=== PATIENT | female | born 1940 | race Caucasian/White ===

== ENCOUNTER 2025-03-13 11:59 | Emergency (ER) | payer OTHER ==
[2025-03-13 13:27] LABS: Absolute Lymphocytes (CBC) 0.7 K/uL (0.7-4.9); Hematocrit 34.3 % (36.0-45.0); Hemoglobin 10.8 g/dL (12.0-15.0); MCH 26.8 pg (27.0-35.0); MCHC 31.6 g/dL (32.0-36.0); MCV 85.0 fL (80-100); MPV 8.7 fL (7.6-11.3); Nucleated RBC Absolute Count 0.0 (0-0); Nucleated Red Blood Cells % 0.0 % (0-0); RBC Red Blood Cell Count 4.04 M/uL (3.86-4.86); White Blood Count 8.30 thou/uL (4.3-10.9)
[2025-03-13 13:45] LABS: AST/SGOT 35 U/L (15-37); Albumin 2.7 g/dL (3.4-5.0); Albumin/Globulin Ratio 0.8 (1.1-1.8); Alkaline Phosphatase 87 U/L (45-117); Anion Gap 8.8 mEq/L (5.0-15.0); BUN Blood Urea Nitrogen 10 mg/dL (7-18); Globulin 3.3 g/dL (2.3-3.5); Glucose Level 86 mg/dL (74-106); Lipase 12 U/L (13-75); Potassium 4.8 mEq/L (3.5-5.1)
[2025-03-13 13:47] LABS: ALT/SGPT < 14 U/L (13-56)
--- NOTE | 2025-03-13 14:46 | RAD REPORT ---
EXAMINATION: CT Abdomen Pelvis W Contrast CLINICAL INDICATION: Female, 85 years old. ABD PAIN TECHNIQUE: CT abdomen and pelvis was performed, after the administration of IV contrast, as per depar tment protocol. Axial, sagittal and coronal reconstructions were obtained. One or more of the following dose reduction techniques were used: Automated exposure control, adjustment of the mA and k V according to patient size, and iterative reconstruction. Unless otherwise specified, incidental findings do not require dedicated imaging follow-up. COMPARISON: No prior exam. FINDINGS: LOWER CHEST: Trace layering right pleural effusion. The visualized lung bases are clear apart from a 6 mm peripheral left lower lobe calcified granuloma. LIVER: Normal in size and contour. No focal lesion. BILIARY SYSTEM: Status post cholecystectomy. Prominent caliber of the common bile duct, up to 12 mm, with no discrete mass at the ampulla within limits of CT evaluation. This probably relates to reservoir effect. SPLEEN: Normal size. No focal lesion. PANCREAS: No mass, ductal dilation, or kristen-pancreatic fluid. ADRENALS: Normal; no mass. KIDNEYS: Right nephrostomy tube in satisfactory position. No hydroureteronephrosis. Numerous cortical renal cysts largest at the right lower pole measuring 3.8 cm. No hydronephrosis. URINARY BLADDER: Unremarkable. GASTROINTESTINAL TRACT: Sequelae of large bowel partial resection. Mild free pelvic and perihepatic a scites. No evidence of free air, significant intra-abdominal free fluid, bowel obstruction or abscess. APPENDIX: Normal appendix. LYMPH NODES: No lymphadenopathy. MUSCULOSKELETAL: Bilateral hip arthroplasty hardware results in extensive streak artifact which limit s evaluation. No acute or suspicious osseous abnormality. ADDITIONAL FINDINGS: Heterogeneously enhancing posterior pelvic mass centered right of midline, measu ring 11.7 x 9.2 x 10.5 cm, which could be of uterine or right adnexal origin. Another heterogeneously enhancing left anterior pelvic mass measuring 8.7 x 7.2 x 3.1 cm, likely left adnexal origin. Up to advanced atherosclerotic calcific plaque of the abdominal aorta. IMPRESSION: There are 2 large heterogeneously enhancing masses in the pelvis, the most sizable 11.7 cm mass could be of uterine or right adnexal origin, while the left pelvic mass is probably of left adnexal origin. Given size and morphology, malignant etiologies should be considered, including but not limit ed to ovarian cystadenomas or cystadenocarcinomas. Gynecologic referral recommended. Mild free ascites. Right nephrostomy tube in satisfactory position. No hydroureteronephrosis or evidence of calculi. Other incidental findings as above.
[2025-03-13 15:44] LABS: Urine Microscopic Reflex YN NO UMIC
--- NOTE | 2025-03-13 16:08 | EDPHYS ---
Physician Documentation [facility] Name: Zoë Jolly Age: 85 yrs Sex: Female : 1940 Arrival Date: 03/13/2025 Time: 11:59 Bed 7 Private MD: ED Physician Jaquan Booth HPI: 03/13 14:59 This 85 yrs old Female presents to ER via Ambulatory with complaints of nephrostomy ms3 tube issue, Abdominal Pain. 14:59 85-year-old female with past medical history of colon cancer, neuropathy, cardiac ms3 issues presents to the emergency department for abdominal pain that she rates 10/10 and has been ongoing for 2 days. Patient denies fevers, chills, diarrhea. She denies any alleviating or inciting factors.. Historical: - Allergies: 12:23 PENICILLINS; dd2 - PMHx: 12:23 COLON CA; NEUROPATHY; CARDIAC ISSUES; dd2 - PSHx: 12:23 PACEMAKER; RT NEPHROSTOMY TUBE; KNEE REPLACEMENT; HIP REPLACEMENT; dd2 - Immunization history:: Adult Immunizations unknown. - Infectious Disease History:: Denies. - Social history:: Smoking status: Patient denies any tobacco usage or history of. ROS: 14:59 Constitutional: Negative for fever, and chills. Cardiovascular: Negative for chest ms3 pain, and palpitations. Respiratory: Negative for shortness of breath, cough, wheezing, and pleuritic chest pain, 14:59 MS/Extremity: Negative for injury and deformity, Skin: Negative for injury, rash, and discoloration, 14:59 Abdomen/GI: Positive for abdominal pain, Exam: 14:59 Constitutional: This is a well developed, well nourished patient who is awake, alert, ms3 and in no acute distress. Cardiovascular: Regular rate and rhythm with a normal S1 and S2. No gallops, murmurs, or rubs. Normal PMI, no JVD. No pulse deficits. Respiratory: Lungs have equal breath sounds bilaterally, clear to auscultation and percussion. No rales, rhonchi or wheezes noted. No increased work of breathing, no retractions or nasal flaring. 14:59 MS/ Extremity: Pulses equal, no cyanosis. Neurovascular intact. Full, normal range of motion. 14:59 Abdomen/GI: Inspection: abdomen appears normal, Bowel sounds: normal, Palpation: moderate abdominal tenderness, in the right lower quadrant, Vital Signs: 12:20 BP 107 / 65; Pulse 57; Resp 17; Temp 98.6; Pulse Ox 100% ; Weight 56.7 kg; Pain 9/10; dd2 13:23 BP 107 / 65; Pulse 62; Resp 18; Temp 98.1; Pulse Ox 100% on R/A; Pain 10/10; zm 14:27 BP 115 / 62; Pulse 65; Resp 18; Pulse Ox 100% on R/A; ap3 16:19 BP 117 / 55; Pulse 65; Resp 18; Temp 98.3; Pulse Ox 100% on R/A; Pain 3/10; zm 12:20 Pain Scale: Adult dd2 13:23 Pain Scale: Adult zm 16:19 Pain Scale: Adult zm [place] Coma Score: 13:23 Eye Response: spontaneous(4). Motor Response: obeys commands(6). Verbal Response: zm oriented(5). Total: 15. 16:19 Eye Response: spontaneous(4). Motor Response: obeys commands(6). Verbal Response: zm oriented(5). Total: 15. MDM: 13:10 Medical Screening Exam initiated ms3 14:59 Differential diagnosis: appendicitis, bowel obstruction, non-specific abd pain. ms3 16:08 Data reviewed: vital signs, nurses notes, lab test result(s), radiologic studies, and ms3 as a result, I will discharge patient. I considered the following discharge prescriptions or medication management in the emergency department Medications were administered in the Emergency Department. See MAR. Independent interpretation of the following test(s) in the Emergency Department CT Scan: My interpretation is CT abd/pelvis images reviewed by me reveal pelvic masses. Counseling: I had a detailed discussion with the patient and/or guardian regarding the historical points, exam findings, and any diagnostic results supporting the discharge/admit diagnosis, lab results, radiology results, the need for outpatient follow up, to return to the emergency department if symptoms worsen or persist or if there are any questions or concerns that arise at home. ED course: Discussed CT findings and labs with patient, her daughter, and her grandson. Patient currently has appointment with gastroenterology as she had previously had colon cancer. Patient also has appointment with oncology with biopsy scheduled. Patient to follow-up as scheduled. All questions were answered. Return precautions were discussed include worsening symptoms, or any other concerns. On reevaluation patient's symptoms improved, patient is alert and oriented, in no apparent distress, nontoxic-appearing, speaking full sentences.. 03/13 13:10 Order name: CBC with Diff; Complete Time: 14:56 ms3 03/13 13:10 Order name: CMP; Complete Time: 14:56 ms3 03/13 13:10 Order name: Lipase; Complete Time: 14:56 ms3 03/13 13:10 Order name: UA Rfx [place] Cult if indicated; Complete Time: 15:58 ms3 03/13 13:10 Order name: CT Abd/Pelvis - IV Contrast Only; Complete Time: 14:56 ms3 03/13 13:10 Order name: IV Saline Lock; Complete Time: 13:19 ms3 03/13 13:10 Order name: Labs collected and sent; Complete Time: 13:19 ms3 Administered Medications: No medications were administered Disposition Summary: 03/13/25 16:07 Discharge Ordered Notes: Location: Home ms3 Condition: Stable ms3 Diagnosis - Lower abdominal pain, unspecified ms3 - Pelvic masses ms3 Followup: ms3 - With: Private Physician - When: 2 - 3 days - Reason: Recheck today's complaints Discharge Instructions: - Discharge Summary Sheet ms3 - Abdominal Pain, Adult ms3 - Pelvic Mass, Female ms3 Forms: - Medication Reconciliation Form ms3 - Antibiotic Education ms3 - Prescription Opioid Use ms3 - Patient Portal Instructions ms3 - Leadership Thank You Letter ms3 Signatures: Dispatcher [employer] EDJaquan Keating DO DO ms3 JORDAN BRAGG, RN RN dd2 Corrections: (The following items were deleted from the chart) 13:11 13:11 Abdomen Pelvis W Con+CT.RAD.BRZ ordered. EDMS EDMS 15:38 14:57 Straight Cath ordered. ms3 zm
--- NOTE | 2025-03-13 16:08 | ER ---
Nurse's Notes [facility] Name: Zoë Jolly Age: 85 yrs Sex: Female : 1940 Arrival Date: 03/13/2025 Time: 11:59 Bed 7 Private MD: Diagnosis: Lower abdominal pain, unspecified;Pelvic masses Presentation: 03/13 12:20 Chief complaint: Patient states: RT NEPHROSTOMY PLACED 2 MONTHS AGO OCCASIONAL PAIN TO dd2 RT FLANK, BEGAN HAVING SEVERE STOMACH PAIN 2 DAYS AGO WITH BLOATING. PT DENIES N/V, DIARRHEA OR CONSTIPATION. Coronavirus screen: At this time, the client does not indicate any symptoms associated with coronavirus-19. Ebola Screen: No symptoms or risks identified at this time. Initial Sepsis Screen: Does the patient meet any 2 criteria? No. Patient's initial sepsis screen is negative. Does the patient have a suspected source of infection? No. Patient's initial sepsis screen is negative. Risk Assessment: Do you want to hurt yourself or someone else? Patient reports no desire to harm self or others. Onset of symptoms was March 11, 2025. 12:20 Method Of Arrival: Ambulatory dd2 12:20 Acuity: GRACIA 3 dd2 Triage Assessment: 12:23 General: Appears in no apparent distress. uncomfortable, Behavior is calm, cooperative, dd2 appropriate for age. Pain: Complains of pain in abdomen. GI: Abdomen is distended, Abdomen is tender to palpation X 4 quads. Abd is rigid in right lower quadrant and left lower quadrant Reports lower abdominal pain, upper abdominal pain. Historical: - Allergies: 12:23 PENICILLINS; dd2 - PMHx: 12:23 COLON CA; NEUROPATHY; CARDIAC ISSUES; dd2 - PSHx: 12:23 PACEMAKER; RT NEPHROSTOMY TUBE; KNEE REPLACEMENT; HIP REPLACEMENT; dd2 - Immunization history:: Adult Immunizations unknown. - Infectious Disease History:: Denies. - Social history:: Smoking status: Patient denies any tobacco usage or history of. Screenin:50 Abuse screen: Denies threats or abuse. Nutritional screening: No deficits noted. ap3 Tuberculosis screening: No symptoms or risk factors identified. 13:21 [facility] ED Fall Risk Assessment (Adult) History of falling in the last 3 months, zm including since admission Yes- fall prone (multiple falls) (3 pts) Confusion or Disorientation No (0 pts) Intoxicated or Sedated No (0 pts) Impaired Gait Yes (1 pt) Mobility Assist Device Used Yes (1 pt) Altered Elimination Yes (1 pt) Score/Fall Risk Level 3 or more points = High Risk Oriented to surroundings, Maintained a safe environment, Educated pt \T\ family on fall prevention, incl call for assistance when getting out of bed, Assessed \T\ reinforced patient's understanding of fall precautions, Hourly rounding (assess needs \T\ fall precautionary measures) done, Used ambulatory aids as needed (educated on \T\ assisted with), Used gait belt as appropriate Implemented a Fall Risk Plan of Care, Remained w/in arm's length of patient and in sight while toileting, Offered frequent toileting (1:1 observation), Remained with patient while ambulating. Assessment: 12:46 General: Appears uncomfortable, Behavior is calm, cooperative, appropriate for age. ap3 Pain: Complains of pain in abdomen Pain began gradually, 2-3 days ago. Neuro: Level of Consciousness is awake, alert, obeys commands, Oriented to person, place, time, situation, Appropriate for age Speech is normal. Cardiovascular: Patient's skin is warm and dry. Respiratory: Airway is patent Respiratory effort is even, unlabored, Respiratory pattern is regular, symmetrical. GI: Abdomen is flat, Abdomen is tender to palpation in suprapubic area, right lower quadrant and left lower quadrant. : nephrostomy tube. 13:22 Respiratory: Breath sounds are clear bilaterally. GI: Bowel sounds present X 4 quads. zm hyperactive in right upper quadrant, left upper quadrant, right lower quadrant and left lower quadrant. 15:15 Reassessment: Patient appears in no apparent distress at this time. Patient and/or zm family updated on plan of care and expected duration. Pain level reassessed. Patient is alert, oriented x 3, equal unlabored respirations, skin warm/dry/pink. Patient states feeling better. Patient states symptoms have improved. 16:19 Reassessment: Patient appears in no apparent distress at this time. No changes from zm previously documented assessment. Patient and/or family updated on plan of care and expected duration. Pain level reassessed. Patient is alert, oriented x 3, equal unlabored respirations, skin warm/dry/pink. Patient states feeling better. Patient states symptoms have improved. Vital Signs: 12:20 BP 107 / 65; Pulse 57; Resp 17; Temp 98.6; Pulse Ox 100% ; Weight 56.7 kg; Pain 9/10; dd2 13:23 BP 107 / 65; Pulse 62; Resp 18; Temp 98.1; Pulse Ox 100% on R/A; Pain 10/10; zm 14:27 BP 115 / 62; Pulse 65; Resp 18; Pulse Ox 100% on R/A; ap3 16:19 BP 117 / 55; Pulse 65; Resp 18; Temp 98.3; Pulse Ox 100% on R/A; Pain 3/10; zm 12:20 Pain Scale: Adult dd2 13:23 Pain Scale: Adult zm 16:19 Pain Scale: Adult zm [place] Coma Score: 13:23 Eye Response: spontaneous(4). Motor Response: obeys commands(6). Verbal Response: zm oriented(5). Total: 15. 16:19 Eye Response: spontaneous(4). Motor Response: obeys commands(6). Verbal Response: zm oriented(5). Total: 15. ED Course: 12:02 Patient arrived in ED. im 12:23 Triage completed. dd2 12:23 Arm band placed on right wrist. dd2 12:46 Jing Bonilla, RN is Primary Nurse. ap3 12:48 Jaquan Booth DO is Attending Physician. ms3 13:19 CBC with Diff Sent. zm 13:19 CMP Sent. zm 13:19 Lipase Sent. zm 13:21 Patient has correct armband on for positive identification. Bed in low position. Call zm light in reach. Side rails up X2. Adult w/ patient. Provided Education on: call light use. Client placed on continuous cardiac and pulse oximetry monitoring. NIBP monitoring applied. Door closed. Noise minimized. Lights dimmed. Warm blanket given. Verbal reassurance given. 14:12 CT Abd/Pelvis - IV Contrast Only In Process Unspecified. EDMS 15:38 UA Rfx [place] Cult if indicated Sent. zm 16:21 No provider procedures requiring assistance completed. IV discontinued, intact, zm bleeding controlled, No redness/swelling at site. Pressure dressing applied. Administered Medications: No medications were administered Medication: 13:22 VIS not applicable for this client. zm Outcome: 16:07 Discharge ordered by . ms3 16:21 Discharged to home via wheelchair, with family, rosy 16:21 Condition: stable 16:21 Discharge instructions given to patient, family, Instructed on discharge instructions, follow up and referral plans. safety practices, Demonstrated understanding of instructions, follow-up care, 16:36 Patient left the ED. rosy Signatures: Dispatcher [employer] EDJing Simmons RN RN ap3 Jaquan Booth DO DO ms3 Yelena Neal RN RN Lili Arroyo DIANA RN RN dd2
[2025-03-13 19:58] VITALS: O2SAT 100
[2025-03-13 20:02] VITALS: BP 117/55; TEMP 98.3
== END 2025-03-13 16:36 | disposition home or self-care (01) ==
LOC: ER 11:59
DX: R19.09 Other intra-abdominal and pelvic swelling, mass and lump (principal); Z95.0 Presence of cardiac pacemaker
CPT/HCPCS: 85025; 36415; 81003; 83690; 80053; 74177; Q9967; 99284